=== PATIENT | male | born 1975 | race African-American/Black ===

== ENCOUNTER 2018-02-25 21:33 | Observation (INO) ==
[2018-02-26] MEDS ORDERED: Acetaminophen 500 MG Tablet PO PRN (03:49)
[2018-02-26] MEDS ORDERED: Sodium Chloride 0.9% 2 ML Flush PRN IV.FLUSH (03:50)
[2018-02-26] MEDS ORDERED: Sodium Chloride 0.9% 2 ML Flush BID IV.FLUSH SCH (09:00)
--- NOTE | 2018-02-26 10:17 | P.HPCA ---
History of Present Illness Primary Care Physician: No Primary Care Physician Chief Complaint: Dyspnea, chest pain, dizziness History of Present Illness: 42-year-old male with no significant past medical history current smoker presents emergency room for further evaluation of multiple complaints. Onset last evening between 830-9 PM. Drank one shot of vodka and "one hit from a blunt." Nearly immediately after smoking he became dyspneic, "gasping for breath ," felt extremely hot, developed left shoulder pain with radiated to left lateral chest. After a few minutes of this then began "shaking uncontrollably." Duration approximately 1 hour. No nausea or vomiting. Precipitating factors likely marijuana use. No relieving factors, reports gradually improvement of symptoms. Denies similar episodes in the past. No recent illness, cough, or injury. Endorses daily alcohol use drinking anywhere from a couple of shots to a bottle of liquor. Past cardiac testing None Social history No known retention, hyperlipidemia, or diabetes. Smokes 1/2 pack black and mild filter cigars daily. Drinks alcohol daily ranging between 2 shots and bottle of vodka. Daily marijuana use. Lives with girlfriend. Endorses active lifestyle. 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 Family history Noncontributory for early onset cardiovascular disease. - Diagnosis (1) Atypical chest pain (2) Tobacco use (3) Alcohol use (4) Marijuana use Review of Systems All other systems reviewed negative except as [facility] - History History Provided By: Patient - Medical / Surgical Hx Neg / Unobtainable Surgical History: No Previous Surgery - Medical History Medical History: Medical History (Last Reviewed 02/26/18 @ 14:50 by JOSSELYN Peoples) Patient denies medical problems - Surgical History Surgical History: Surgical History (Last Reviewed 02/26/18 @ 14:50 by JOSSELYN Peoples) No history of previous surgery - Social History I have reviewed the patient's Social History: Yes - Tobacco History Second Hand Smoke Exposure: Yes Tobacco Use In Past 30 Days: Yes Smoking Status: Heavy tobacco smoker Tobacco Type: Cigars Packs Per Day: 0.5 (Black and Mild cigars) - Alcohol History How Often Do You Have a Drink Containing Alcohol: 4 or more times a week - Substance Use History Substance History: Active Abuse - Substance Use Type Marijuana Status: Active Route Used: Inhalation Reason for Use: Calm Down, Get High - Travel History History of Recent Travel: No Recent Travel in the [place] Within the Last 8 Weeks: No Recent Travel Out of the Country Within the Last 8 Weeks: No Medications and Allergies Active Medications: Active Medications Acetaminophen (Tylenol) 500 mg PO Q4H PRN PRN Reason: HEADACHE Ondansetron HCl (Zofran Inj) 4 mg IV.PUSH Q6H PRN PRN Reason: NAUSEA Sodium Chloride (Ns Flush) 2 ml IV.FLUSH BID JEFF Last Admin: 02/26/18 09:33 Dose: 2 ml Sodium Chloride (Ns Flush) 2 ml IV.FLUSH PRN PRN PRN Reason: FLUSH AFTER USING IV ACCESS Allergies Allergy/AdvReac Type Severity Reaction Status Date / Time No Known Allergies Allergy Verified 02/25/18 21:37 Home Medications Medication Instructions Recorded Confirmed Type No Known Home Medications 02/25/18 02/26/18 History Exam Vital signs: Vital Signs 02/26/18 04:25 02/26/18 07:14 Temperature 98.1 F 97.5 F L Pulse Rate 91 H 89 Respiratory Rate 17 20 Blood Pressure 93/64 L 94/64 L Pulse Oximetry 94 L 97 Intake & Output 02/25/18 02/26/18 02/26/18 18:59 06:59 18:59 Weight 63.503 kg Other: Weight On Admission 63.503 kg Narrative: GENERAL: Alert WN, WD, NAD, pleasant, thin -[place] male HEAD: NC, AT EYES: Sclera reddened, conjunctiva injected pupils equal and round ENT: Mucous membranes pink and moist NECK: Supple, no masses, trachea midline CV: RRR, without murmur, rub, gallop. Chest wall nontender to palpation. RESP: Diminished lungs throughout bilateral, expiratory wheeze upper lobes, no rhonchi, symmetrical chest rise, nonlabored, able to speak in full sentences ABD: Soft, NT, ND, no masses, positive bowel tones BACK: No scoliosis EXT: Pulses +2x4, no dependent edema MS: Normal tone -4 extremities, nontender, no obvious deformities, full range of motion NEURO: Motor strength 5/5, gait WNL PSYCH: A+O x3, pleasant affect, appropriate speech, insight and judgment, became tearful while discussing alcohol intake and smoking status SKIN: Normal turgor, normal texture, no lesions, brisk cap refill, even hair distribution, multiple tattoos Results Cardiac Enzymes 02/26/18 02/26/18 Range/Units 03:18 06:00 Troponin I Less than 0.02 L Less than 0.02 L (0.02-0.05) ng/mL Intake and Output 02/25/18 02/26/18 02/26/18 22:59 06:59 14:59 Other: Weight 63.503 kg Weight On Admission 63.503 kg EKG interpretations - EKG EKG results cardiology: sinus rhythm, normal axis, normal QRS, normal ST/T ( Criteria for LVH) Caprini VTE Risk Assessment Caprini VTE Risk Assessment: No/Low Risk (score <= 1) Caprini Risk Assessment Model: Point Value = 1 Point Value = 2 Point Value = 3 Point Value = 5 Age 41-60 Minor surgery BMI > 25 kg/m2 Swollen legs Varicose veins or History of unexplained or recurrent spontaneous Oral contraceptives or hormone replacement Sepsis (< 1 month) Serious lung disease, including pneumonia (< 1 month) Abnormal pulmonary function Acute myocardial infarction Congestive heart failure (< 1 month) History of inflammatory bowel disease Medical patient at bed rest Age 61-74 Arthroscopic surgery Major open surgery (> 45 min) Laparoscopic surgery (> 45 min) Malignancy Confined to bed (> 72 hours) Immobilizing plaster cast Central venous access Age >= 75 History of VTE Family history of VTE Factor V Leiden Prothrombin [id number] Lupus anticoagulant Anticardiolipin antibodies Elevated serum homocysteine Heparin-induced thrombocytopenia Other congenital or acquired thrombophilia Stroke (< 1 month) Elective arthroplasty Hip, pelvis, or leg fracture Acute spinal cord injury (< 1 month) Prophylaxis Regimen: Total Risk Factor Score Risk Level Prophylaxis Regimen 0-1 Low Early ambulation 2 Moderate Order ONE of the following: *Sequential Compression Device (SCD) *Heparin 5000 units SQ BID 3-4 Higher Order ONE of the following medications: *Heparin 5000 units SQ TID *Enoxaparin/Lovenox 40 mg SQ daily (WT < 150 kg, CrCl > 30 mL/min) *Enoxaparin/Lovenox 30 mg SQ daily (WT < 150 kg, CrCl > 10-29 mL/min) *Enoxaparin/Lovenox 30 mg SQ BID (WT < 150 kg, CrCl > 30 mL/min) AND/OR *Sequential Compression Device (SCD) 5 or more Highest Order ONE of the following medications: *Heparin 5000 units SQ TID (Preferred with Epidurals) *Enoxaparin/Lovenox 40 mg SQ daily (WT < 150 kg, CrCl > 30 mL/min) *Enoxaparin/Lovenox 30 mg SQ daily (WT < 150 kg, CrCl > 10-29 mL/min) *Enoxaparin/Lovenox 30 mg SQ BID (WT < 150 kg, CrCl > 30 mL/min) AND *Sequential Compression Device (SCD) Assessment and Plan - Assessment (1) Atypical chest pain Code(s): R07.89 - Other chest pain Status: Acute Plan: Admitted chest pain center. ACS ruled out with 3 sets of EKGs and cardiac enzymes. Will be seen and evaluated by Dr. Thong Ogden. Patient atypical for cardiac etiology. Plan likely to proceed with exercise cardiac stress testing prior to discharge. He has been strongly encouraged to establish with a primary care provider for medical management prevention. Names and contact numbers of local clinics will be provided in discharge instructions. (2) Tobacco use Code(s): Z72.0 - Tobacco use Status: Chronic Plan: Strongly encouraged and stressed importance of tobacco cessation. Instructed to quit smoking including cigars. Tobacco free [place] program information will be provided upon discharge. (3) Alcohol use Code(s): Z78.9 - Other specified health status Status: Chronic Plan: Discussed drinking no more than 2 alcoholic beverages daily, and encouraged considering stopping all alcohol consumption. Potential long-term effects of alcohol use discussed in length. (4) Marijuana use Code(s): F12.90 - Cannabis use, unspecified, uncomplicated Status: Chronic Plan: Structured to stop using marijuana. H&P: Quality - VTE Deep Vein Thrombosis/Pulmonary Embolism Present on Admission: No
[2018-02-26 11:55] VITALS: BP 105/69; PULSE 73; RESP 20; TEMP 98.1; O2SAT 100
--- NOTE | 2018-02-26 13:57 | P.PNCA ---
Subjective Interval history: Patient was seen and evaluated by the nurse practitioner. I am in agreement with her documentation. In essence he developed an episode of feeling like he was shaking or trembling inside about 8:30 in the evening after smoking a joint and drinking a shot of vodka. In addition to this he smokes Black and mild cigars the girlfriend indicates that he smokes these almost incessantly obviously chewing on them although he states he does not inhale. He then indicates that it may be does inhale some. In addition to this he drinks a very large amount of coffee mostly in the a.m. All in all between nicotine and caffeine marijuana and vodka he probably had a significant neurologic impact. The girlfriend also indicates that although he felt he was shaking and trembling she did not feel this when she touched him indicating what they both except was that it was probably his nerves. He also experienced some chest discomfort with this which he describes as feeling like someone just pokes him with a finger that came and went along with the shakiness and dizziness. This pain was sharp when he felt it but certainly only momentarily and not as severe as reported. Since hospitalization he has felt much better and is currently stable. Medications and Allergies Allergies Allergy/AdvReac Type Severity Reaction Status Date / Time No Known Allergies Allergy Verified 02/25/18 21:37 Home Medications Medication Instructions Recorded Confirmed Type No Known Home Medications 02/25/18 02/26/18 History Physical Exam Vital signs: Vital Signs 02/26/18 04:25 02/26/18 07:14 02/26/18 08:00 Temperature 98.1 F 97.5 F L Pulse Rate 91 H 89 73 Respiratory Rate 17 20 Blood Pressure 93/64 L 94/64 L Pulse Oximetry 94 L 97 02/26/18 11:13 02/26/18 11:54 Temperature 98.1 F Pulse Rate 64 73 Respiratory Rate 12 20 Blood Pressure 105/69 Pulse Oximetry 100 Intake & Output 02/25/18 02/26/18 02/26/18 18:59 06:59 18:59 Weight 63.503 kg Other: Weight On Admission 63.503 kg Narrative: Thin black male with girlfriend and sister in room Skin warm and dry normal texture and turgor Eyes PERRLA EOMI sclera clear Neck supple no JVD masses nodes or bruits Chest somewhat diminished breath sounds but no rales wheezes or rhonchi Cardiovascular PMI is not displaced the rhythm is regular no gallop rub or murmur noted Abdomen soft no guarding or no guarding rebound or tenderness Results Cardiac Enzymes 02/26/18 02/26/18 Range/Units 03:18 06:00 Troponin I Less than 0.02 L Less than 0.02 L (0.02-0.05) ng/mL Intake and Output 02/25/18 02/26/18 02/26/18 22:59 06:59 14:59 Other: Weight 63.503 kg Weight On Admission 63.503 kg Assessment and Plan - Assessment (1) Atypical chest pain Code(s): R07.89 - Other chest pain Status: Acute Plan: Chest pain was extremely atypical for cardiovascular etiology and most likely related to his stimulant use. He will be evaluated with an exercise stress test he does well with this he will be discharged home for further outpatient evaluation by his primary care physician. (He is instructed regard to the need of establishing with a primary care) (2) Tobacco use Code(s): Z72.0 - Tobacco use Status: Acute Plan: I have explained to the patient that although he does not inhale his cigars that he still gets a very large amount of nicotine because he absorbs the tobacco through his mouth and throat. Also talked to him about the excessive amount of coffee he is using and the additional risks of mixing stimulants and depression such as vodka which he drinks in fairly large quantities. His girlfriend was in the room at the time of this discussion and supported his need to reduce both (3) Alcohol use Code(s): Z78.9 - Other specified health status Status: Acute Plan: Made him aware that he should reduce the amount of alcohol using
--- NOTE | 2018-02-26 14:11 | ECG ---
Date Performed: 02/26/2018 Time Performed: 05:57:51 PTAGE: 42 years EKG: Sinus rhythm MINIMAL VOLTAGE CRITERIA FOR LVH, CONSIDER NORMAL VARIANT BORDERLINE ECG No significant change NO PREVIOUS TRACING DOCTOR: Thong Ogden Interpretating Date/Time 02/26/2018 14:10:35
--- NOTE | 2018-02-26 14:12 | ECG ---
Date Performed: 02/26/2018 Time Performed: 03:19:45 PTAGE: 42 years EKG: Sinus rhythm MINIMAL VOLTAGE CRITERIA FOR LVH, CONSIDER NORMAL VARIANT BORDERLINE ECG No significant change NO PREVIOUS TRACING DOCTOR: Thong Ogden Interpretating Date/Time 02/26/2018 14:10:54
--- NOTE | 2018-02-27 16:32 | TR ---
Date Performed: 02/26/2018 Time Performed: 14:03:29 DOCTOR: Thong Ogden DRUG LIST: CLINICAL HISTORY: REASON FOR TEST: REASON FOR ENDING: OBSERVATION: CONCLUSION: Mirza protocol completed. Stopped sec to exceeding target heart rate and leg fatigue . Maximum EL=594 Max HR Achieved=97.0% Maximum DE=164/80 Total Exercise Time=10:41. No reprod chest p ain. No ectopy. No st t segments changes, non diagnositic. Excellent exercise tolerance.Normal bp res ponse. Recovery quick and unremarkable. COMMENTS: Patient had NSSTT changes and developed some J point depression with up-sloping segmen ts not diagnostic of ischemia. He reached a very good exercise level with no symptoms during or afte r. Low probability of ischemic heart disease as cause of current presentation.
== END 2018-02-26 12:55 | disposition home or self-care (01) ==
LOC: NEPGCP 21:33 → NEDDLT 21:33
PROVIDERS: ADMIT Internal Medicine Interventional Cardiology; ATTEND Internal Medicine Interventional Cardiology
CPT/HCPCS: 71010; 71045; 80053; 80307; 83690; 84484; 85025; 93005; 93017; 94664; 99285; G0378